=== PATIENT | male | born 1960 | race Two or more races ===

== ENCOUNTER 2016-12-16 16:48 | Emergency (ER) | payer OTHER ==
[2016-12-16 17:12] VITALS: BMI 31.8
[2016-12-16 17:14] VITALS: BP 158/95; PULSE 78; RESP 18; TEMP 97.9; O2SAT 97
--- NOTE | 2016-12-16 20:08 | C.PDOC ---
History Of Present Illness 56 yr old male presents to the ER with complaints of cracked left lower, 2nd pre -molar for the past 2-3 weeks. Patient states, however over the past 2-3 days he has been experiencing pain in the tooth. Patient denies fever, chills, swelling in the mouth, gum swelling or neck pain. Time Seen by Provider: 12/16/16 17:07 Chief Complaint (Nursing): Dental Pain History Per: Patient History/Exam Limitations: no limitations Onset/Duration Of Symptoms: Days Past Medical History Reviewed: Historical Data, Nursing Documentation, Vital Signs Vital Signs: Last Vital Signs Temp 97.9 F 12/16/16 17:13 Pulse 78 12/16/16 17:13 Resp 18 12/16/16 17:13 BP 158/95 H 12/16/16 17:13 Pulse Ox 97 12/16/16 20:09 Family History: States: No Known Family Hx - Social History Hx Alcohol Use: Yes Hx Substance Use: No - Immunization History Hx Tetanus Toxoid Vaccination: No Hx Influenza Vaccination: No Hx Pneumococcal Vaccination: No Review Of Systems Except As Marked, All Systems Reviewed And Found Negative. Constitutional: Negative for: Fever, Chills ENT: Positive for: Other ((+) Left lower, 2nd pre molar pain). Negative for: Mouth Swelling Musculoskeletal: Negative for: Neck Pain Physical Exam - Physical Exam Appears: Non-toxic, No Acute Distress Skin: Warm, Dry, No Rash Head: Atraumatic, Normacephalic Oral Mucosa: Moist Tongue: Normal Appearing, No Swelling Lips: Normal Appearing, No Swelling Teeth: Other ((+) Left lower pre-molar is cracked.) Throat: Normal, No Erythema, No Exudate, No Drooling Extremity: Normal ROM, No Swelling Neurological/Psych: Oriented x3, Normal Speech, Normal Motor ED Course And Treatment O2 Sat by Pulse Oximetry: 97 (RA) Pulse Ox Interpretation: Normal Medical Decision Making Medical Decision Making: PLAN: * Amoxicillin PO * Motrin PO Patient eloped Disposition - Disposition Disposition: ELOPEMENT - ER ONLY Disposition Time: 18:00 Condition: FAIR Forms: [facility] ([place]) - POA Present On Arrival: None - Clinical Impression Clinical Impression: Dental caries, Cracked tooth - PA / [employer] / Resident Statement MD/DO has reviewed & agrees with the documentation as recorded. - Scribe Statement The provider has reviewed the documentation as recorded by the Scribe Rosalva Galan All medical record entries made by the [place] were at my direction and personally dictated by me. I have reviewed the chart and agree that the record accurately reflects my personal performance of the history, physical exam, medical decision making, and the department course for this patient. I have also personally directed, reviewed, and agree with the discharge instructions and disposition.
== END 2016-12-16 17:30 | disposition left against medical advice (07) ==
LOC: C.ER 16:48
DX: K02.9 Dental caries, unspecified (principal); K03.81 Cracked tooth